=== PATIENT | male | born 1980 | race Two or more races ===

== ENCOUNTER 2017-06-09 12:18 | Observation (INO) | payer MEDICAID ==
[~2017-06-09] VITALS: Ht 170.2 cm; Wt 118.8 kg
[2017-06-09 12:59] LABS: Urine RBC None Seen /hpf (0 - 3)
[2017-06-09 13:21] LABS: Urine Bilirubin Negative (Negative); Urine Blood Negative /uL (Negative); Urine Color Yellow (Yellow); Urine Glucose 4+ mg/dL (Normal); Urine Ketone 2+ (Negative); Urine Nitrite Negative (Negative); Urine Squamous Epithelial Cell FEW /hpf (<5); Urine Urobilinogen Normal (Negative)
[2017-06-09 13:24] LABS: Basophils # (auto) 0.1 uL; Basophils % (auto) 0.9 % (0.0-2.0); Eosinophils # (auto) 0.2 uL; Eosinophils % (auto) 2.6 % (0.0-7.0); Hematocrit 46.9 % (41.0-53.0); Hemoglobin 16.1 g/dL (13.5-17.5); Lymphocytes # (auto) 2.6 uL; Mean Corpuscular Hemoglobin 31.3 pg (28.0-32.0); Mean Corpuscular Hgb Conc. 34.3 g/dL (32.0-36.0); Mean Corpuscular Volume 91.3 fL (80.0-100.0); Mean Platelet Volume 11.6 fL (6.9-10.8); Monocytes # (auto) 0.7 uL; Monocytes % (auto) 7.2 % (0.0-12.0); Neutrophils # (auto) 5.6 uL; Neutrophils % (auto) 61.3 % (37.0-80.0); Nucleated Red Blood Cells % 0.3 %; Platelet Count (auto) 183 10^3/uL (140-450); Red Cell Distribution Width 12.6 % (11.8-14.3); White Blood Cell 9.1 10^3/uL (4.4-10.8)
[2017-06-09 13:47] LABS: Albumin 3.9 g/dL (3.4-5.0); BUN/Creatinine Ratio 9.5; Bilirubin, Total 0.7 mg/dL (0.2-1.0); Calcium 8.5 mg/dL (8.5-10.1); Potassium 4.1 mmol/L (3.5-5.1); Total Protein 7.7 g/dL (6.4-8.2)
[2017-06-09] MEDS ORDERED: SODIUM CHLORIDE 0.9% 1,000 ML IVB ONE (16:06)
[2017-06-09 17:09] LABS: INR 0.99 (0.9-1.15); Partial Thromboplastin Time 25.5 sec (22.64-33.71); Prothrombin Time 10.8 sec (9.37-12.3)
[2017-06-09] MEDS ORDERED: InsuLIN REG 1unit/0.01ml Soln (100units/ml) SC ONE (17:15)
[2017-06-09 18:41] VITALS: BP 132/73
== END 2017-06-09 19:38 | disposition home or self-care (01) | DRG 420 ==
LOC: ER 12:18 → OVERFLOW 16:07 → ER 19:38
PROVIDERS: ADMIT Family Medicine; ATTEND Family Medicine
DX: E11.65 Type 2 diabetes mellitus with hyperglycemia (principal); R79.89 Other specified abnormal findings of blood chemistry; Z83.3 Family history of diabetes mellitus
CPT/HCPCS: 36415; 71010; 80053; 81001; 82962; 83735; 85025; 85610; 85730; 96360; 96372; 99285; G0378; J1815

== ENCOUNTER 2022-12-16 08:27 | Emergency (ER) | payer MEDICAID, OTHER ==
[~2022-12-16] VITALS: Ht 167.6 cm; Wt 105.2 kg
[2022-12-16 08:35] VITALS: BP 120/82
[2022-12-16] MEDS ORDERED: DexAMETHasone SOD PHOS 10MG/1ML VIAL INJ IM ONE (10:30)
[2022-12-16] MEDS ORDERED: IBUP-1455 PO (10:34)
[2022-12-16] MEDS ORDERED: LORA10CA PO (10:34)
== END 2022-12-16 11:05 | disposition home or self-care (01) ==
LOC: ER 08:27
DX: J02.8 Acute pharyngitis due to other specified organisms (principal); Z88.0 Allergy status to penicillin
CPT/HCPCS: 82962; 87070; 87804; 87880; 96372; 99283; J1100

== ENCOUNTER 2023-07-05 13:56 | Emergency (ER) | payer OTHER ==
[~2023-07-05] VITALS: Ht 170.2 cm; Wt 108.9 kg
[~2023-07-05 13:56] MED LIST: IBUP-1455 PO; LORA10CA PO
[2023-07-05 18:48] VITALS: BP 133/95; PULSE 85; RESP 16; TEMP 98.1; O2SAT 96
[2023-07-05] MEDS ORDERED: AZIT-43 PO (18:48)
== END 2023-07-05 18:57 | disposition home or self-care (01) ==
LOC: ER 13:56
DX: J20.9 Acute bronchitis, unspecified (principal); I10 Essential (primary) hypertension; E11.9 Type 2 diabetes mellitus without complications